=== PATIENT | female | born 1945 | race Caucasian/White ===

== ENCOUNTER 2017-03-13 15:53 | Inpatient (IN) | payer OTHER, MEDICARE ==
[~2017-03-13] VITALS: Ht 152.4 cm; Wt 58.0 kg
[2017-03-13 17:14] LABS: BASOPHIL % 0.7 % (0-2); PLATELET COUNT 307 x10^3mcL (130-400)
[2017-03-13 17:18] LABS: RED CELL DISTRIBUTION WIDTH 14.7 % (11.5-14.5)
[2017-03-13 17:20] LABS: CALCIUM 9.8 mg/dL (8.5-10.1); CARBON DIOXIDE 25.3 mmol/L (21-32); CHLORIDE SERUM 96 mmol/L (98-107); GLUCOSE SERUM 246 mg/dL (74-106); SODIUM SERUM 135 mmol/L (136-145)
[2017-03-13 17:26] LABS: ALBUMIN 3.6 g/dL (3.4-5.0); ALKALINE PHOSPHATASE 105 U/L (46-116); ALT/SGPT 21 U/L (14-59); AST/SGOT 12 U/L (15-37); TOTAL PROTEIN, SERUM 8.5 g/dL (6.4-8.2)
[2017-03-13] MEDS ORDERED: AMANTADINE HCL100 M1 PO (19:07)
[2017-03-13] MEDS ORDERED: JANUMET 50-5001 EACH PO (19:08)
[2017-03-13] MEDS ORDERED: SEROQUEL25 MG PO (19:08)
[2017-03-13] MEDS ORDERED: CLONIDINE HCL0.2 MG PO (19:09)
[2017-03-13] MEDS ORDERED: ARICEPT5 MG PO (19:09)
[2017-03-13] MEDS ORDERED: ASPIR 8181 MG PO (19:09)
[2017-03-13] MEDS ORDERED: AMA1 PO (19:10)
[2017-03-13] MEDS ORDERED: NOR5 PO (19:10)
[2017-03-13] MEDS ORDERED: ATORVASTATIN CA40 M1 PO (19:10)
[2017-03-13] MEDS ORDERED: LOSARTAN POTASS1 TA6 PO (19:11)
[2017-03-13 19:51] LABS: UA SPECIFIC GRAVITY <=1.005 (1.005-1.035); microscopic required? YES; urine erythrocyte NEGATIVE (NEGATIVE)
[2017-03-13 20:51] VITALS: BP 183/76
[2017-03-13 21:11] LABS: T3 TOTAL 1.49 ng/mL
[2017-03-13 21:31] LABS: FREE T4 1.41 ng/dL (0.76-1.46); FREE THYROXINE INDEX 3.8 ug/dL (1.4-4.5); T4(THYROXINE) 10.9 ug/dL (4.7-13.3)
[2017-03-13 21:34] LABS: MAGNESIUM 1.3 mg/dL (1.8-2.4); PHOSPHOROUS 2.2 mg/dL (2.5-4.9)
[2017-03-13 21:35] LABS: CHOLESTEROL/HDL RATIO 2.1
[2017-03-14 01:45] VITALS: BP 148/63
[2017-03-14] MEDS ORDERED: HYDROCHLOROTHIA25 MG PO (02:46)
[2017-03-14] MEDS ORDERED: LOSARTAN POTAS100 M1 PO (02:47)
[2017-03-14] MEDS ORDERED: TOUJEO300 U/ML SC (02:50)
[2017-03-14 06:23] VITALS: BP 153/63
[2017-03-14 07:24] LABS: CALCIUM 8.4 mg/dL (8.5-10.1); CHLORIDE SERUM 107 mmol/L (98-107); CREATININE SERUM 0.7 mg/dL (0.6-1.0); GLUCOSE SERUM 84 mg/dL (74-106); MAGNESIUM 1.6 mg/dL (1.8-2.4); POTASSIUM SERUM 3.4 mmol/L (3.5-5.1); SODIUM SERUM 142 mmol/L (136-145)
[2017-03-14 07:30] LABS: BASOPHIL % 0.3 % (0-2); PLATELET COUNT 288 x10^3mcL (130-400); RED CELL DISTRIBUTION WIDTH 15.2 % (11.5-14.5)
[2017-03-14 08:52] VITALS: BP 153/62
[2017-03-14 12:34] VITALS: BP 124/52
[2017-03-14 16:38] VITALS: BP 129/58
[2017-03-14 21:06] VITALS: BP 142/63
[2017-03-15 05:21] VITALS: BP 139/66
[2017-03-15 07:13] LABS: BASOPHIL % 0.5 % (0-2); PLATELET COUNT 244 x10^3mcL (130-400)
[2017-03-15 07:20] LABS: RED CELL DISTRIBUTION WIDTH 15.6 % (11.5-14.5)
[2017-03-15 07:49] LABS: CALCIUM 7.9 mg/dL (8.5-10.1); CARBON DIOXIDE 26.3 mmol/L (21-32); CHLORIDE SERUM 109 mmol/L (98-107); CREATININE SERUM 0.8 mg/dL (0.6-1.0); GLUCOSE SERUM 220 mg/dL (74-106); PHOSPHOROUS 2.6 mg/dL (2.5-4.9); SODIUM SERUM 141 mmol/L (136-145)
[2017-03-15 07:50] LABS: MAGNESIUM 1.8 mg/dL (1.8-2.4)
[2017-03-15 09:06] VITALS: BP 140/69
[2017-03-15] MEDS ORDERED: LEVAQUIN750 MG PO (10:21)
[2017-03-15] MEDS ORDERED: LAC PO (10:22)
[2017-03-15 12:58] VITALS: BP 121/53
[2017-03-16] MEDS ORDERED: LEVAQUIN750 MG PO (17:20)
[2017-03-16] MEDS ORDERED: LAC PO (17:20)
== END 2017-03-15 13:59 | disposition home or self-care (01) | DRG 463 ==
LOC: ED 15:53 → DU 18:41
PROVIDERS: Emergency Medicine; ADMIT Family Medicine
DX: N10 Acute pyelonephritis (principal); N17.0 Acute kidney failure with tubular necrosis; I50.43 Acute on chronic combined systolic (congestive) and diastolic (congestive) heart failure; E87.2 Acidosis; I11.0 Hypertensive heart disease with heart failure; I16.0 Hypertensive urgency; E86.0 Dehydration; E11.65 Type 2 diabetes mellitus with hyperglycemia; E11.51 Type 2 diabetes mellitus with diabetic peripheral angiopathy without gangrene; E87.1 Hypo-osmolality and hyponatremia; E87.6 Hypokalemia; E83.39 Other disorders of phosphorus metabolism; E83.42 Hypomagnesemia; F03.90 Unspecified dementia, unspecified severity, without behavioral disturbance, psychotic disturbance, mood disturbance, and anxiety; M51.36 Other intervertebral disc degeneration, lumbar region; Z68.25 Body mass index [BMI] 25.0-25.9, adult; Z95.1 Presence of aortocoronary bypass graft; Z86.73 Personal history of transient ischemic attack (TIA), and cerebral infarction without residual deficits; Z79.4 Long term (current) use of insulin; Z79.84 Long term (current) use of oral hypoglycemic drugs; Z79.82 Long term (current) use of aspirin
CPT/HCPCS: 83880; 84439; J0360; J0696; J1815; J1885; J2405; J3475; J7030

== ENCOUNTER 2017-07-08 08:35 | Inpatient (IN) | payer OTHER, MEDICARE ==
[~2017-07-08] VITALS: Ht 152.4 cm; Wt 55.5 kg
[2017-07-08] VITALS (7 sets, daily range): BP systolic 121–189; BP diastolic 56–76
[~2017-07-08 08:35] MED LIST: AMA1 PO; AMANTADINE HCL100 M1 PO; ARICEPT5 MG PO; ASPIR 8181 MG PO; ATORVASTATIN CA40 M1 PO; CLONIDINE HCL0.2 MG PO; HYDROCHLOROTHIA25 MG PO; JANUMET 50-5001 EACH PO; LAC PO; LEVAQUIN750 MG PO; LOSARTAN POTAS100 M1 PO; LOSARTAN POTASS1 TA6 PO; NOR5 PO; SEROQUEL25 MG PO; TOUJEO300 U/ML SC
[2017-07-08 09:09] LABS: BASOPHIL % 0.5 % (0-2); PLATELET COUNT 293 x10^3mcL (130-400)
[2017-07-08 09:13] LABS: RED CELL DISTRIBUTION WIDTH 15.6 % (11.5-14.5)
[2017-07-08 09:14] LABS: CALCIUM 9.8 mg/dL (8.5-10.1); CARBON DIOXIDE 26.9 mmol/L (21-32); CHLORIDE SERUM 102 mmol/L (98-107); CREATININE SERUM 0.8 mg/dL (0.6-1.0); GLUCOSE SERUM 65 mg/dL (74-106); POTASSIUM SERUM 3.4 mmol/L (3.5-5.1); SODIUM SERUM 141 mmol/L (136-145)
[2017-07-08 09:21] LABS: ALKALINE PHOSPHATASE 105 U/L (46-116); ALT/SGPT 24 U/L (14-59); AST/SGOT 30 U/L (15-37); BILIRUBIN TOTAL 0.45 mg/dL (0.20-1.00); TOTAL PROTEIN, SERUM 7.9 g/dL (6.4-8.2)
[2017-07-08 09:23] LABS: ALBUMIN 3.3 g/dL (3.4-5.0)
[2017-07-08] MEDS ORDERED: NAMENDA10 M2 PO (10:04)
[2017-07-08] MEDS ORDERED: LOSARTAN POTASS1 TA6 PO (10:07)
[2017-07-08 11:14] LABS: UA SPECIFIC GRAVITY <=1.005 (1.005-1.035); microscopic required? YES; urine erythrocyte NEGATIVE (NEGATIVE)
[2017-07-08 16:43] LABS: AMPHETAMINE QUAL UR NONE DETECTED (NEG <=1000)
[2017-07-08 17:14] LABS: T3 TOTAL 0.73 ng/mL
[2017-07-08 17:34] LABS: MAGNESIUM 1.8 mg/dL (1.8-2.4); PHOSPHOROUS 3.3 mg/dL (2.5-4.9)
[2017-07-08 17:35] LABS: FREE T4 1.03 ng/dL (0.76-1.46); FREE THYROXINE INDEX 2.5 ug/dL (1.4-4.5); T4(THYROXINE) 7.7 ug/dL (4.7-13.3)
[2017-07-08 17:37] LABS: CHOLESTEROL/HDL RATIO 2.5
[2017-07-09 03:09] LABS: BASOPHIL % 0.4 % (0-2); PLATELET COUNT 261 x10^3mcL (130-400)
[2017-07-09 03:15] LABS: RED CELL DISTRIBUTION WIDTH 15.7 % (11.5-14.5)
[2017-07-09 03:53] LABS: CALCIUM 8.5 mg/dL (8.5-10.1); CARBON DIOXIDE 31.7 mmol/L (21-32); CHLORIDE SERUM 106 mmol/L (98-107); CREATININE SERUM 0.8 mg/dL (0.6-1.0); GLUCOSE SERUM 69 mg/dL (74-106); POTASSIUM SERUM 3.3 mmol/L (3.5-5.1); SODIUM SERUM 143 mmol/L (136-145)
[2017-07-09 04:58] VITALS: BP 138/67
[2017-07-09 09:50] VITALS: BP 153/68
[2017-07-09 13:30] VITALS: BP 135/62
[2017-07-09 17:40] VITALS: BP 120/66
[2017-07-09 22:24] VITALS: BP 129/63
[2017-07-10 06:32] VITALS: BP 117/59
[2017-07-10 06:45] LABS: BASOPHIL % 0.7 % (0-2); PLATELET COUNT 225 x10^3mcL (130-400); RED CELL DISTRIBUTION WIDTH 15.9 % (11.5-14.5)
[2017-07-10 08:00] LABS: ALBUMIN 2.3 g/dL (3.4-5.0); CALCIUM 7.9 mg/dL (8.5-10.1); CARBON DIOXIDE 27.7 mmol/L (21-32); CHLORIDE SERUM 110 mmol/L (98-107); CREATININE SERUM 0.9 mg/dL (0.6-1.0); GLUCOSE SERUM 86 mg/dL (74-106); POTASSIUM SERUM 4.2 mmol/L (3.5-5.1); SODIUM SERUM 144 mmol/L (136-145)
[2017-07-10 09:05] VITALS: BP 118/57
[2017-07-10 12:16] VITALS: BP 124/54
[2017-07-10 17:51] VITALS: BP 137/67
[2017-07-10 17:54] VITALS: BP 156/63
[2017-07-10 21:14] VITALS: BP 149/58
[2017-07-11 05:31] VITALS: BP 169/71
[2017-07-11 07:01] LABS: PLATELET COUNT 240 x10^3mcL (130-400)
[2017-07-11 07:09] LABS: BASOPHIL % 3.4 % (0-2); RED CELL DISTRIBUTION WIDTH 14.6 % (11.5-14.5)
[2017-07-11 07:26] LABS: CALCIUM 8.4 mg/dL (8.5-10.1); CARBON DIOXIDE 26.1 mmol/L (21-32); CHLORIDE SERUM 109 mmol/L (98-107); CREATININE SERUM 0.8 mg/dL (0.6-1.0); GLUCOSE SERUM 94 mg/dL (74-106); POTASSIUM SERUM 4.2 mmol/L (3.5-5.1); SODIUM SERUM 142 mmol/L (136-145)
[2017-07-11 08:39] VITALS: BP 176/71
[2017-07-11] MEDS ORDERED: LEVEMIR100 U/M1 SQ (11:47)
[2017-07-11] MEDS ORDERED: LEVOFLOXACIN500 M1 PO (11:49)
[2017-07-11] MEDS ORDERED: LAC PO (11:50)
[2017-07-11 13:04] VITALS: BP 160/67
[2017-07-11 14:44] VITALS: BP 160/67
== END 2017-07-11 17:47 | disposition home health service (06) | DRG 463 ==
LOC: ED 08:35 → DU 11:20
PROVIDERS: Emergency Medicine; Family Medicine
DX: N39.0 Urinary tract infection, site not specified (principal); N17.0 Acute kidney failure with tubular necrosis; E43 Unspecified severe protein-calorie malnutrition; G93.41 Metabolic encephalopathy; E11.65 Type 2 diabetes mellitus with hyperglycemia; E11.51 Type 2 diabetes mellitus with diabetic peripheral angiopathy without gangrene; I69.354 Hemiplegia and hemiparesis following cerebral infarction affecting left non-dominant side; G30.9 Alzheimer's disease, unspecified; F02.80 Dementia in other diseases classified elsewhere, unspecified severity, without behavioral disturbance, psychotic disturbance, mood disturbance, and anxiety; E04.1 Nontoxic single thyroid nodule; E87.6 Hypokalemia; I16.0 Hypertensive urgency; I10 Essential (primary) hypertension; I25.2 Old myocardial infarction; Z68.23 Body mass index [BMI] 23.0-23.9, adult; Z95.5 Presence of coronary angioplasty implant and graft; Z79.4 Long term (current) use of insulin; Z79.82 Long term (current) use of aspirin
CPT/HCPCS: 83880; 84439; 97110-GP; 97116-GP; 97530-GP; J0696; J1815; J3490; J7030; Q0092; Q9967